=== PATIENT | male | born 1965 | race African-American/Black ===

== ENCOUNTER 2018-05-18 14:40 | Emergency (ER) | payer SELFPAY ==
[~2018-05-18] VITALS: Ht 190.5 cm; Wt 100.0 kg
[2018-05-18] MEDS ORDERED: MORPHINE SULFATE 4 MG/ML CPJ (NOT FOR IM USE) IV STA (15:11)
[2018-05-18] MEDS ORDERED: ONDANSETRON HCL 4MG/2ML INJ IV STA (15:11)
[2018-05-18] MEDS ORDERED: SODIUM CHLORIDE 0.9% 1,000 ML IV ONE (15:11)
[2018-05-18] MEDS ORDERED: FAMOTIDINE 20MG/2ML VIAL IV ONE (15:15)
[2018-05-18] MEDS ORDERED: MAGNESIUM/ALUMINUM HYDROXIDE/SIMETHICONE 30ML UDC PO ONE (15:15)
[2018-05-18 16:03] VITALS: BP 145/96
[2018-05-18 16:17] LABS: BASOPHILS % 0.7 % (0.0-2.0); HEMATOCRIT. 44.2 % (42.0-52.0); HEMOGLOBIN. 15.6 g/dL (14.0-18.0); LYMPHOCYTES % 41.8 % (20.0-50.0); MEAN CORPUSCULAR HEMOGLOBIN 32.9 pg (28.0-32.0); MEAN CORPUSCULAR VOLUME 93.3 fL (80.0-94.0); MEAN PLATELET VOLUME 9.6 fl (7.4-10.4); MONOCYTES % 5.8 % (2.0-8.0); NEUTROPHILS % 49.7 % (40.0-76.0); PLATELET 249 x1000/uL (130-400); RED BLOOD CELL COUNT 4.73 mill/uL (4.7-6.1); RED CELL DISTRIBUTION WIDTH 12.9 % (11.6-14.6)
[2018-05-18 16:21] LABS: CHLORIDE 101 mEq/L (98-107)
[2018-05-18 16:25] LABS: ETHANOL BLOOD < 10 mg/dL
[2018-05-18 16:26] LABS: D-DIMER 0.39 mg/L FEU (<0.50); PARTIAL THROMBOPLASTIN TIME 27.8 sec (23.4-31.0); PROTHROMBIN TIME 9.8 sec (9.1-11.1)
[2018-05-18] MEDS ORDERED: LORAZEPAM 2MG/ML CPJ IV ONE (17:15)
== END 2018-05-18 17:39 | disposition home or self-care (01) ==
LOC: ER 14:40
DX: R07.89 Other chest pain (principal); R73.9 Hyperglycemia, unspecified; I25.2 Old myocardial infarction; G43.909 Migraine, unspecified, not intractable, without status migrainosus; F17.200 Nicotine dependence, unspecified, uncomplicated; Z98.890 Other specified postprocedural states; Z88.6 Allergy status to analgesic agent; Z88.1 Allergy status to other antibiotic agents
CPT/HCPCS: 36415; 71045; 80053; 83690; 83880; 84484; 85025; 85379; 85610; 85730; 93005; 96374; 96375; 99284; G0482; J2060; J2270; J2405; J3490; J7030

== ENCOUNTER 2018-08-01 09:43 | Emergency (ER) | payer SELFPAY ==
[~2018-08-01] VITALS: Ht 190.5 cm; Wt 106.0 kg
[2018-08-01 09:52] VITALS: BP 149/99
== END 2018-08-01 15:29 | disposition left against medical advice (07) ==
LOC: ER 09:43
DX: Z53.21 Procedure and treatment not carried out due to patient leaving prior to being seen by health care provider (principal)